=== PATIENT | male | born 1960 | race Caucasian/White ===

== ENCOUNTER → 2017-12-28 | Outpatient (CLI) | payer MEDICARE ==
[2017-12-28 13:10] LABS: HCT 50.7 % (39.0-53.0); HGB 16.2 gm/dL (13.0-17.5); MCH 30.1 pg (25.0-35.0); MCHC 31.9 g/dL (31.0-37.0); MCV 94.4 fL (80.0-100.0); Mean Platelet Volume 8.5; Platelet Count 232 k/uL (150-450); RBC 5.37 m/uL (4.30-5.90); RDW 12.9 % (11.5-15.5); WBC 8.3 k/uL (3.8-10.6)
[2017-12-28 13:28] LABS: Anion Gap 9 mmol/L; Blood Urea Nitrogen 21 mg/dL (9-20); Carbon Dioxide 27 mmol/L (22-30); Chloride 103 mmol/L (98-107); Potassium 4.6 mmol/L (3.5-5.1); Sodium 139 mmol/L (137-145)
== END ==
LOC: LABPAT 11:38
PROVIDERS: ATTEND Internal Medicine Interventional Cardiology
DX: Z01.812 Encounter for preprocedural laboratory examination (principal); I25.2 Old myocardial infarction; I10 Essential (primary) hypertension; E78.2 Mixed hyperlipidemia
CPT/HCPCS: 80051; 82565; 84520; 85027

== ENCOUNTER 2023-09-06 16:05 | Inpatient (IN) | payer MEDICARE ==
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
[2023-09-06 16:36] LABS: Basophils # (A) 0.1 k/uL (0-0.2); Basophils % (A) 1 %; Eosinophils # (A) 0.2 k/uL (0-0.7); Eosinophils % (A) 2 %; HCT 43.7 % (39.0-53.0); HGB 14.4 gm/dL (13.0-17.5); Lymphocytes # (A) 2.1 k/uL (1.0-4.8); Lymphocytes % (A) 20 %; MCH 30.8 pg (25.0-35.0); MCHC 32.9 g/dL (31.0-37.0); MCV 93.6 fL (80.0-100.0); Mean Platelet Volume 8.4; Monocytes # (A) 0.8 k/uL (0-1.0); Monocytes % (A) 8 %; Neutrophils # (A) 6.8 k/uL (1.3-7.7); Neutrophils % (A) 67 %; Platelet Count 329 k/uL (150-450); RBC 4.67 m/uL (4.30-5.90); RDW 12.8 % (11.5-15.5); WBC 10.1 k/uL (3.8-10.6)
[2023-09-06 16:42] LABS: INR 0.9 (<1.2); Partial Thromboplastin Time 26.5 sec (22.0-30.0)
[2023-09-06 16:53] LABS: ALT 36 U/L (4-49); AST 26 U/L (17-59); African American GFR (CKD) >90 (>60 ml/min/1.73 sqM); Alkaline Phosphatase 110 U/L (38-126); Anion Gap 9 mmol/L; Blood Urea Nitrogen 14 mg/dL (9-20); Calcium 9.4 mg/dL (8.4-10.2); Carbon Dioxide 25 mmol/L (22-30); Chloride 107 mmol/L (98-107); Glucose 215 mg/dL (74-99); Magnesium 1.8 mg/dL (1.6-2.3); Non-African American GFR(CKD) >90 (>60 ml/min/1.73 sqM); Potassium 3.5 mmol/L (3.5-5.1); Sodium 141 mmol/L (137-145); Total Bilirubin 0.4 mg/dL (0.2-1.3); Total Protein 6.6 g/dL (6.3-8.2)
--- NOTE | 2023-09-06 17:12 | XR ---
EXAMINATION TYPE: XR chest 2V DATE OF EXAM: 09/06/2023 4:41 PM CLINICAL INDICATION:Male, 63 years old with history of chest pain; [facility] COMPARISON: None TECHNIQUE: XR chest 2V Frontal view of the chest. FINDINGS: Lungs/Pleura: Interstitial prominence in the lung bases There is no evidence of pleural effusion, foc al consolidation, or pneumothorax. Pulmonary vascularity: Unremarkable. Heart/mediastinum: Cardiomediastinal silhouette is unremarkable. Musculoskeletal: No acute osseous pathology. Other findings: None IMPRESSION: Predominant interstitial opacities in the lung bases correlate for pneumonia.
[2023-09-06] MEDS ORDERED: IPRATROPIUM-ALBUTEROL 3 ML NEB INHALATION PRN (18:58)
[2023-09-06] MEDS ORDERED: PNEUMONIA PROTOCOL UTILIZED 1 EACH MISC PO PRN (18:58)
[2023-09-06] MEDS ORDERED: NALOXONE 0.4 MG/ML 1 ML VIAL IVP PRN (18:58)
[2023-09-06] MEDS: SODIUM CHLORIDE 0.9% 1,000 ML IV SCH (20:04)
[2023-09-06] MEDS: AZITHROMYCIN 500 MG in SODIUM CHLORIDE 0.9% 250 ML IVPB STA (20:05)
[2023-09-06] MEDS: methylPREDNISolone SOD SUCCI 125 MG/2 ML VIAL IV STA (20:06)
[2023-09-06] MEDS: SODIUM CHLORIDE 0.9% 500 ML 500 ML IV ONE (22:35)
[2023-09-06] MEDS: methylPREDNISolone SOD SUCCI 125 MG/2 ML VIAL IV SCH (23:43)
[2023-09-07] MEDS: ALBUTEROL NEBULIZED 2.5 MG/3 ML INHALATION PRN (04:51)
[2023-09-07 06:01] LABS: Glucose,Whole Blood 237 mg/dL (70-110)
[2023-09-07] MEDS ORDERED: RX INFO: IV CONTRAST WAS GIVEN 1 EACH MISC MISCELLANE PRN (08:01)
[2023-09-07 09:27] LABS: ALT 30 U/L (4-49); AST 19 U/L (17-59); African American GFR (CKD) >90 (>60 ml/min/1.73 sqM); Albumin 3.7 g/dL (3.5-5.0); Albumin/Globulin Ratio 1.5; Alkaline Phosphatase 95 U/L (38-126); Anion Gap 10 mmol/L; Blood Urea Nitrogen 15 mg/dL (9-20); Calcium 9.1 mg/dL (8.4-10.2); Carbon Dioxide 24 mmol/L (22-30); Chloride 103 mmol/L (98-107); Globulin 2.4 g/dL; Glucose 355 mg/dL (74-99); Non-African American GFR(CKD) >90 (>60 ml/min/1.73 sqM); Potassium 3.6 mmol/L (3.5-5.1); Sodium 137 mmol/L (137-145); Total Bilirubin 0.4 mg/dL (0.2-1.3); Total Protein 6.1 g/dL (6.3-8.2)
[2023-09-07 09:41] LABS: Basophils % (A) 0 %; Eosinophils % (A) 0 %; HCT 41.9 % (39.0-53.0); HGB 13.3 gm/dL (13.0-17.5); Lymphocytes # (A) 0.6 k/uL (1.0-4.8); Lymphocytes % (A) 7 %; MCH 30.2 pg (25.0-35.0); MCHC 31.7 g/dL (31.0-37.0); MCV 95.3 fL (80.0-100.0); Monocytes # (A) 0.2 k/uL (0-1.0); Monocytes % (A) 3 %; Neutrophils # (A) 7.9 k/uL (1.3-7.7); Neutrophils % (A) 89 %; Platelet Count 301 k/uL (150-450); RDW 12.9 % (11.5-15.5); WBC 8.8 k/uL (3.8-10.6)
[2023-09-07] MEDS ORDERED: DEXTROSE 50% SYRINGE 50 ML IVP PRN ×2 (09:51)
--- NOTE | 2023-09-07 10:38 | CT ---
EXAMINATION TYPE: CT angio chest DATE OF EXAM: 09/07/2023 10:18 AM COMPARISON: None HISTORY: R/O PE CT DLP: 345.9 mGycm Automated exposure control for dose reduction was used. CONTRAST: CTA scan of the thorax is performed with IV Contrast, patient injected with 75ml mL of Isovue 370, pu lmonary embolism protocol. 3-D postprocessing was performed.. FINDINGS: There are no suspicious lung masses or nodules. There is no airspace consolidation. There is mild to moderate focal interstitial scarring or fibrosis in the left upper lobe and lingula. There is no pleural effusion, pleural thickening or pneumothorax. Great vessels are normal. No mediastinal, hilar or axillary adenopathy. There are no filling defects within the pulmonary arteries or segmental branches to suggest pulmonary embolism. IMPRESSION: 1. NO EVIDENCE OF PULMONARY EMBOLISM. 2. NO ACUTE CARDIOPULMONARY DISEASE. 3. MILD INTERSTITIAL SCARRING IN THE LEFT LOWER LOBE AND LINGULA.
[2023-09-07] MEDS: AZITHROMYCIN 500 MG in SODIUM CHLORIDE 0.9% 250 ML IVPB SCH (11:08)
[2023-09-07 11:52] LABS: Glucose,Whole Blood 277 mg/dL (70-110)
[2023-09-07] MEDS: INSULIN ASPART (NovoLOG) 100 UNIT/ML VIAL SQ SCH (12:18)
[2023-09-07] MEDS: HYDROcodone/APAP 5-325MG 1 EACH TAB PO PRN (13:02)
[2023-09-07 14:04] VITALS: BMI 28.8
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
[2023-09-07] MEDS: HEPARIN SODIUM,PORCINE 5,000 UNIT/ML 1 ML VIAL SQ SCH (15:40)
[2023-09-07 16:43] LABS: Glucose,Whole Blood 327 mg/dL (70-110)
[2023-09-07 20:37] LABS: Glucose,Whole Blood 298 mg/dL (70-110)
--- NOTE | 2023-09-07 22:55 | XR ---
EXAMINATION TYPE: XR chest 1V portable DATE OF EXAM: 09/07/2023 COMPARISON: 09/06/2023 INDICATION: Pneumonia TECHNIQUE: Single frontal view of the chest is obtained. FINDINGS: The heart size is normal. The pulmonary vasculature is normal. There are some chronic appearing peripheral left midlung traits. Small left pleural effusion is prese nt. IMPRESSION: 1. Small left pleural effusion. 2. Minimal infiltrate in the periphery of the left lung appears chronic. Old comparison for confirmat ion were not available. Pneumonia and atelectasis should be considered within the differential. Follo w-up is recommended.
[2023-09-08 05:47] LABS: Glucose,Whole Blood 249 mg/dL (70-110)
[2023-09-08 08:55] LABS: Basophils # (A) 0.02 X 10*3/uL (0.00-0.10); Basophils % (A) 0.1 %; Eosinophils # (A) 0 X 10*3/uL (0.04-0.35); Eosinophils % (A) 0 %; HCT 38.2 % (39.6-50.0); HGB 12.6 g/dL (13.0-17.0); Lymphocytes % (A) 7.3 %; MCH 29.8 pg (27.0-32.0); MCV 90.3 FL (80.0-97.0); Monocytes # (A) 0.53 X 10*3/uL (0.20-1.00); Monocytes % (A) 3.5 %; NRBC Per 100 WBC 0 X 10*3/uL (0.00-0.01); Neutrophils # (A) 13.26 X 10*3/uL (1.80-7.70); Platelet Count 347 X 10*3/uL (140-440); RBC 4.23 X 10*6/uL (4.40-5.60); WBC 15.08 X 10*3/uL (4.50-10.00)
[2023-09-08 09:56] LABS: ALT 23 U/L (10-49); AST 9 U/L (14-35); Albumin 3.8 g/dL (3.8-4.9); Albumin/Globulin Ratio 1.65 Ratio (1.60-3.17); Alkaline Phosphatase 93 U/L (41-126); BUN/Creat Ratio 24.88 Ratio (12.00-20.00); Blood Urea Nitrogen 19.9 mg/dL (9.0-27.0); Calcium 9.4 mg/dL (8.7-10.3); Carbon Dioxide 25.3 mmol/L (21.6-31.8); Chloride 105 mmol/L (96-109); Globulin 2.3 g/dL (1.6-3.3); Glucose 294 mg/dL (70-110); Potassium 4.3 mmol/L (3.5-5.5); Sodium 141 mmol/L (135-145); Total Bilirubin <0.2 mg/dL (0.3-1.2); Total Protein 6.1 g/dL (6.2-8.2)
[2023-09-08 11:34] LABS: Glucose,Whole Blood 339 mg/dL (70-110)
--- NOTE | 2023-09-08 13:32 | P.PN ---
Subjective Progress Note Date: 09/08/23 This is a pleasant 63-year-old male patient with a known history of coronary artery disease, chronic obstructive pulmonary disease, diabetes mellitus, hyperlipidemia, hypertension, obstructive sleep apnea, anxiety/depression. He presented to the emergency room here last night after developing chest pain and shortness of breath. CT angiogram revealed no evidence of pulmonary embolism. No acute cardiopulmonary disease. Some mild interstitial scarring in the left lower lobe and lingula. White count 8.8. Hemoglobin 13.3. Platelets 301. Sodium 137. Potassium 3.6. Bicarb 24. BUN 15. Creatinine 0.69. Glucose 355. Troponin negative x 1. Procalcitonin pending. He was initiated on ceftriaxone and azithromycin. On Solu-Medrol. He is seen today in consultation on the regular medical floor. He is currently sitting up at the bedside. Awake and alert in no acute distress. He is having suspected pleuritic type chest pain. Mostly in the upper chest area. Mostly with deep inhalation. He is maintaining good O2 saturations in the 90s on room air. He hs been afebrile. Hemodynamically stable. The patient is seen today September 08, 2023 in follow-up on the regular medical floor. He is currently sitting up in bed. Awake and alert in no acute distress. He denies any worsening shortness of breath, cough or congestion. He is feeling better today compared to yesterday. His procalcitonin did come back at 0.17. He remains on ceftriaxone and azithromycin. Continued on bronchodilators and steroids. Heparin for DVT prophylaxis. And sputum cultures revealing no growth. White count 15.0. Hemoglobin 12.6. Platelets 346. Sodium 141. Potassium 4.3. Bicarb 25. BUN 20. Creatinine 0.8. Glucose 294. Objective - Vital Signs Vital signs: Vital Signs Temp 98.4 F 09/08/23 06:59 Pulse 100 09/08/23 11:11 Resp 18 09/08/23 06:59 BP 137/81 09/08/23 06:59 Pulse Ox 96 09/08/23 06:59 FiO2 Intake & Output 09/07/23 09/08/23 09/08/23 18:59 06:59 18:59 Weight 86.183 kg Other: Voiding Method Toilet # Voids 2 2 - Exam GENERAL EXAM: Alert, pleasant 63-year-old male, on room air, sitting up in bed, comfortable in no apparent distress. HEAD: Normocephalic. EYES: Normal reaction of pupils, equal size. NOSE: Clear with pink turbinates. THROAT: No erythema or exudates. NECK: No masses, no JVD. CHEST: No chest wall deformity. LUNGS: Equal air entry with no crackles, wheeze, rhonchi or dullness. CVS: S1 and S2 normal with no audible murmur, regular rhythm. ABDOMEN: No hepatosplenomegaly, normal bowel sounds, no guarding or rigidity. SPINE: No scoliosis or deformity SKIN: No rashes CENTRAL NERVOUS SYSTEM: No focal deficits, tone is normal in all 4 extremities. EXTREMITIES: There is no peripheral edema. No clubbing, no cyanosis. Peripheral pulses are intact. - Labs CBC & Chem 7: 09/08/23 05:46 09/08/23 05:46 Labs: Abnormal Lab Results - Last 24 Hours (Table) 09/07/23 09/07/23 09/07/23 Range/Units 08:44 16:40 20:36 WBC (4.50-10.00) X 10*3/uL RBC (4.40-5.60) X 10*6/uL Hgb (13.0-17.0) g/dL Hct (39.6-50.0) % Immature Gran # (0.00-0.04) X 10*3/uL Neutrophils # (1.80-7.70) X 10*3/uL Eosinophils # (0.04-0.35) X 10*3/uL BUN/Creatinine Ratio (12.00-20.00) Ratio Glucose (70-110) mg/dL POC Glucose (mg/dL) 327 H 298 H (70-110) mg/dL Hemoglobin A1c (<=6.0) % Total Bilirubin (0.3-1.2) mg/dL AST (14-35) U/L Total Protein (6.2-8.2) g/dL Procalcitonin 0.17 H (0.02-0.09) ng/mL 09/08/23 09/08/23 09/08/23 Range/Units 05:46 05:46 05:46 WBC 15.08 H (4.50-10.00) X 10*3/uL RBC 4.23 L (4.40-5.60) X 10*6/uL Hgb 12.6 L (13.0-17.0) g/dL Hct 38.2 L (39.6-50.0) % Immature Gran # 0.17 H (0.00-0.04) X 10*3/uL Neutrophils # 13.26 H (1.80-7.70) X 10*3/uL Eosinophils # 0 L (0.04-0.35) X 10*3/uL BUN/Creatinine Ratio 24.88 H (12.00-20.00) Ratio Glucose 294 H (70-110) mg/dL POC Glucose (mg/dL) (70-110) mg/dL Hemoglobin A1c 7.7 H (<=6.0) % Total Bilirubin <0.2 L (0.3-1.2) mg/dL AST 9 L (14-35) U/L Total Protein 6.1 L (6.2-8.2) g/dL Procalcitonin (0.02-0.09) ng/mL 09/08/23 09/08/23 Range/Units 05:46 11:33 WBC (4.50-10.00) X 10*3/uL RBC (4.40-5.60) X 10*6/uL Hgb (13.0-17.0) g/dL Hct (39.6-50.0) % Immature Gran # (0.00-0.04) X 10*3/uL Neutrophils # (1.80-7.70) X 10*3/uL Eosinophils # (0.04-0.35) X 10*3/uL BUN/Creatinine Ratio (12.00-20.00) Ratio Glucose (70-110) mg/dL POC Glucose (mg/dL) 249 H 339 H (70-110) mg/dL Hemoglobin A1c (<=6.0) % Total Bilirubin (0.3-1.2) mg/dL AST (14-35) U/L Total Protein (6.2-8.2) g/dL Procalcitonin (0.02-0.09) ng/mL Microbiology - Last 24 Hours (Table) 09/06/23 23:52 Gram Stain - Preliminary Sputum Sputum Culture - Preliminary 09/06/23 19:45 Blood Culture - Preliminary Blood 09/06/23 19:30 Blood Culture - Preliminary Blood Assessment and Plan Assessment: Atypical chest pain, suspect pleurisy. Possible underlying tracheobronchitis. CT angiogram ruled out pulmonary embolism. No acute cardiopulmonary process. Mild interstitial scarring the left lower lobe and lingula History of coronary artery disease Diabetes mellitus Hypertension Hyperlipidemia Obstructive sleep apnea, not on CPAP History of anxiety/depression Former smoker Plan: The patient was seen and evaluated Labs and medications reviewed Stable and on room air Cleared for discharge Procalcitonin was 0.17 Complete a 7-day course of Levaquin Complete a prednisone taper starting at 30 mg daily x 5 days Follow-up in our office in 1 week I have personally seen and examined the patient, performed the documentation and the assessment and plan as written. Number of minutes spent on the visit: 10.
[2023-09-08 14:27] VITALS: BP 147/78; PULSE 92; RESP 20; TEMP 98.6
--- NOTE | 2023-09-08 16:09 | P.DS ---
Providers Date of admission: 09/06/23 19:01 Expected date of discharge: 09/08/23 Attending physician: Shyam Buckner Consults: 09/06/23 18:58 Consult Physician Routine Consulting Provider: Amy Lainez Consult Reason/Comments: copd Do you want consulting provider notified?: Yes Primary care physician: Kenneth Trujillo Kut - Discharge Diagnosis(es) (1) Tracheobronchitis Current Visit: Yes Status: Acute (2) Acute exacerbation of chronic obstructive pulmonary disease (COPD) Current Visit: Yes Status: Acute (3) Uncontrolled diabetes mellitus with hyperglycemia Current Visit: Yes Status: Acute (4) COPD (chronic obstructive pulmonary disease) Current Visit: Yes Status: Acute (5) Osteoarthritis of left hip Current Visit: Yes Status: Acute Hospital Course: Discharge diagnoses; #Acute COPD exacerbation likely due to tracheobronchitis WBC is WNL Procalcitonin 0.17 Sputum culture with mixed gram-positive cocci and gram-negative bacilli Blood culture with no growth Chest x-raybilateral base interstitial infiltrates CT angio chest findings of no acute PE, no acute CP disease, mild interstitial scarring of left lower lobe Completed azithromycin, ceftriaxone for 2 days and patient, discharge on 5 days of Levaquin -Given methylprednisolone, discharged on prednisone taper. Follow-up outpatient with truck terminal manager # Uncontrolled diabetes mellitus with hyperglycemia Initial glucose 237 Given insulin Patient to follow-up with PCP for management #Osteoarthritis of the hip Controlled with pain medication Patient to follow-up with PCP for management Hospital course; Lucien Thakkar 63-year-old male with past medical history of hypertension, diabetes mellitus 2, hyperlipidemia, unstable angina, history of IA, and COPD presents with new onset dyspnea and chest pain. Symptoms began gradually 1 week ago with progressive dyspnea and neck pain/chest pain. Pain was gradual and progressively squeezing in character. Pain was not exacerbated with movement, and did not improve with acetaminophen. Patient's associated symptoms include fever, chills, cough with phlegm, and shortness of breath. Patient states today he is not feeling feverish or having chills and shortness of breath is moderately improved. He also states ER medications improved his symptoms. No other complaints at this time. Initial lab work done in the ER showed glucose 237. Chest x-ray done in the ER interstitial infiltrates at base. [id number] seen and examined at bedside denies difficulty breathing fever or chills. Patient discharged with oral antibiotics and prednisone taper. Patient to follow-up with truck terminal manager for COPD treatment. Patient to follow- up with PCP for diabetes and osteoarthritis pain management. Patient discharged home. PHYSICAL EXAMINATION: GENERAL: The patient is alert and oriented x3, not in any acute distress. Well developed, well nourished. HEENT: Pupils are round and equally reacting to light. EOMI. No scleral icterus. No conjunctival pallor. Normocephalic, atraumatic. No pharyngeal erythema. No thyromegaly. CARDIOVASCULAR: S1 and S2 present. No murmurs, rubs, or gallops. PULMONARY: No wheezing or crackles. Breath sounds equal bilaterally. ABDOMEN: Soft, nontender, nondistended, normoactive bowel sounds. No palpable organomegaly. MUSCULOSKELETAL: No joint swelling or deformity. EXTREMITIES: No cyanosis, clubbing, or pedal edema. NEUROLOGICAL: Gross neurological examination did not reveal any focal deficits. SKIN: No rashes. Dictation was produced using [employer] dictation software. please excuse any grammatical, word or spelling errors. Patient Condition at Discharge: Stable Plan - Discharge Summary New Discharge Prescriptions: New predniSONE See Taper PO DAILY 15 Days #15 tablet Levofloxacin [Levaquin] 750 mg PO DAILY 3 Days #3 tab Discharge Medication List Levofloxacin [Levaquin] 750 mg PO DAILY 3 Days #3 tab 09/08/23 [Rx] predniSONE See Taper PO DAILY 15 Days #15 tablet 09/08/23 [Rx] Follow up Appointment(s)/Referral(s): Amy Lainez MD [STAFF PHYSICIAN] - 10/03/23 2:00 pm None,Stated [REFERRING] - 1-2 days (Please call a primary care provider.) Patient Instructions/Handouts: Pleurisy (DC), Pneumonia (DC) Activity/Diet/Wound Care/Special Instructions: *Glucometer is at [facility] - please have it delivered at discharge. Discharge/Stand Alone Forms: Area PCPs Discharge Disposition: HOME SELF-CARE
[2023-09-08] MEDS ORDERED: INSULIN DETEMIR (LEVEMIR) 100 UNIT/ML SYR SQ SCH (21:00)
== END 2023-09-08 15:07 | disposition home or self-care (01) | DRG 192 ==
LOC: EC 16:05 → 4SSUR 19:01
PROVIDERS: ADMIT Hospitalist; ATTEND Hospitalist
DX: J44.0 Chronic obstructive pulmonary disease with (acute) lower respiratory infection (principal); J44.1 Chronic obstructive pulmonary disease with (acute) exacerbation; J20.9 Acute bronchitis, unspecified; E11.65 Type 2 diabetes mellitus with hyperglycemia; I10 Essential (primary) hypertension; F32.A Depression, unspecified; K76.9 Liver disease, unspecified; E78.5 Hyperlipidemia, unspecified; I25.10 Atherosclerotic heart disease of native coronary artery without angina pectoris; G47.33 Obstructive sleep apnea (adult) (pediatric); F41.9 Anxiety disorder, unspecified; I25.2 Old myocardial infarction; M16.12 Unilateral primary osteoarthritis, left hip; Z79.84 Long term (current) use of oral hypoglycemic drugs; Z79.891 Long term (current) use of opiate analgesic; Z79.899 Other long term (current) drug therapy; Z87.891 Personal history of nicotine dependence; Z86.19 Personal history of other infectious and parasitic diseases
CPT/HCPCS: 36415; 71045; 71046; 71275; 80053; 83036; 83735; 84145; 84484; 85025; 85610; 85730; 87040; 87070; 87205; 87449; 93005; 94640; 96361; 96365; 96366; 96368; 96375; 99285